=== PATIENT | female | born 1960 | race Caucasian/White ===

== ENCOUNTER → 2019-04-12 | Outpatient (CLI) | payer OTHER ==
[~2019-04-12] MED LIST: BUPR75 PO; CHOLESTEROL MED; CITA20 PO; CONEST.625; CYCL10 PO; Cipro500 MG PO; DIPATR PO; ESTR2 PO; Esgic Tablet1 EACH PO; FLUO20; FLUT.05NI; GLIP5ER PO; HYDACE5 PO; IBUP800 PO; INSDET100 SC; INSLI100I; INSUASPI SC; INSULANI; INSULANI SC; METF500; METF850 PO; PANT20 PO; PHENY100ER PO; PROM25 PO; PSEUDOEPHEDRINE PO; ROSI4; ROSU10TA; SIMV10 PO
[2019-04-13 14:32] LABS: Stool Occult Bld Immuno 1 Negative (NEGATIVE)
== END | disposition home or self-care (01) ==
LOC: LAB EV 19:00
PROVIDERS: Family Medicine
DX: Z12.11 Encounter for screening for malignant neoplasm of colon (principal)
CPT/HCPCS: 82274

== ENCOUNTER → 2020-05-12 | Outpatient (CLI) | payer OTHER | END | disposition home or self-care (01) | LOC: LAB EV 11:25 → LAB SHORT 11:25 | DX: N39.0 Urinary tract infection, site not specified (principal) | CPT/HCPCS: 87077; 87086; 87186 ==

== ENCOUNTER 2021-06-23 20:10 | Emergency (ER) | payer OTHER ==
[~2021-06-23] VITALS: Ht 170.2 cm; Wt 57.1 kg
== END 2021-06-23 20:25 | disposition left against medical advice (07) ==
LOC: ER 20:10
DX: T38.3X1A Poisoning by insulin and oral hypoglycemic [antidiabetic] drugs, accidental (unintentional), initial encounter (principal)
CPT/HCPCS: 99283

== ENCOUNTER 2021-06-23 22:25 | Emergency (ER) | payer OTHER ==
[~2021-06-23] VITALS: Ht 170.2 cm; Wt 57.1 kg
== END 2021-06-24 00:33 | disposition home or self-care (01) ==
LOC: ER 22:25
DX: T38.3X1A Poisoning by insulin and oral hypoglycemic [antidiabetic] drugs, accidental (unintentional), initial encounter (principal); E11.9 Type 2 diabetes mellitus without complications; G40.909 Epilepsy, unspecified, not intractable, without status epilepticus; E78.5 Hyperlipidemia, unspecified; F17.200 Nicotine dependence, unspecified, uncomplicated; Z79.4 Long term (current) use of insulin; Z79.899 Other long term (current) drug therapy
CPT/HCPCS: 82947; 99283

== ENCOUNTER → 2022-10-05 | Outpatient (CLI) | payer OTHER ==
[2022-10-05 21:17] LABS: Microalb/Creat Ratio UR, Rand Unable to Calculate mg/g (0.000-30.000); Microalbumin, Random Urine <5.000 mg/L (0.000-20.000)
== END | disposition home or self-care (01) ==
LOC: LAB 16:49 → LAB SHORT 16:49
PROVIDERS: Internal Medicine Endocrinology, Diabetes & Metabolism
DX: E10.65 Type 1 diabetes mellitus with hyperglycemia (principal)
CPT/HCPCS: 82043; 82570